=== PATIENT | female | born 1990 | race American Indian/Alaskan Native ===

== ENCOUNTER 2019-03-11 09:21 | Emergency (ER) | payer MEDICAID, OTHER ==
[2019-03-11 09:45] VITALS: BP 143/89
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
== END 2019-03-11 10:59 | disposition home or self-care (01) ==
LOC: ED 09:21
DX: S20.219A Contusion of unspecified front wall of thorax, initial encounter (principal); V49.49XA Driver injured in collision with other motor vehicles in traffic accident, initial encounter; Y93.89 Activity, other specified; Y92.89 Other specified places as the place of occurrence of the external cause; Y99.8 Other external cause status
CPT/HCPCS: 99281

== ENCOUNTER 2020-01-02 10:58 | Emergency (ER) | payer MEDICAID, OTHER ==
--- NOTE | 2020-01-02 12:52 | Event Note ---
ED Screening Note ED Screening Note: last menstrual cycle november 23 states she took a urine preg test and was positive states she began having vaginal bleeding yesterday lower abd cramping no PMHx no allergies to meds /P:4/A:1 This initial assessment/diagnostic orders/clinical plan/treatment(s) is/are subject to change based on patients health status, clinical progression and re- assessment by fellow clinical providers in the ED. Further treatment and workup at subsequent clinical providers discretion. Patient/guardian urged not to elope from the ED as their condition may be serious if not clinically assessed and managed. Initial orders include: labs, UA, US
[2020-01-02 12:56] VITALS: BP 123/70
[2020-01-02 13:22] LABS: Hematocrit 33.5 % (30.3-42.9); Hemoglobin 10.8 gm/dl (10.1-14.3); Mean Corpuscular HGB Conc 32 % (30-34); Platelet Count 247 K/mm3 (140-440); Red Blood Count 5.05 M/mm3 (3.65-5.03); Red Cell Distribution Width 16.7 % (13.2-15.2)
[2020-01-02 13:28] LABS: Mean Corpuscular Volume 66 fl (79-97)
[2020-01-02 13:44] LABS: Basophils # (Auto) 0.1 K/mm3 (0.0-0.1); Eosinophils # (Auto) 0.2 K/mm3 (0.0-0.4); Eosinophils % (Auto) 2.3 % (0.0-4.3); Monocytes # (Auto) 0.6 K/mm3 (0.0-0.8); Monocytes % (Auto) 6.7 % (0.0-7.3)
--- NOTE | 2020-01-02 14:22 | Ultrasound Report ---
Early obstetrical ultrasound INDICATION: , vaginal spotting TECHNIQUE: Transabdominal and endovaginal FINDINGS: Uterus measures 8.8 cm in length. Fundal gestational sac is seen with double wall sign note d. Yolk sac is seen. Sac size would correlate with a gestational age of 6 weeks 0 days. However, no f etal pole is visualized and no cardiac activity was noted. Flow is seen in both ovaries. Right ovary measures 2.8 cm in length and shows no abnormalities. Left ovary measures 3.1 cm in length and shows a 15 mm simple cyst. No free fluid is seen. IMPRESSION: Intrauterine is confirmed but I cannot confirm viability at this time. No pole is identified. Follow-up is needed. Signer Name: Matteo Lacey MD Signed: 01/02/2020 2:18 PM Workstation Name: [id number]
[2020-01-02 14:29] LABS: Bacteria,Urine 1+ /HPF (Negative); Bilirubin,Urine NEG (Negative); Blood,Urine LG (Negative); Color,Urine Yellow (Yellow); Mucus,Urine FEW /HPF; Protein,Urine <15 mg/dL mg/dL (Negative); Urobilinogen,Urine < 2.0 mg/dL (<2.0)
--- NOTE | 2020-01-02 14:40 | Emergency Department Report ---
ED HPI - General Chief complaint: Vaginal Bleeding Stated complaint: POSS MISCARRIAGE Time Seen by Provider: 01/02/20 12:51 Source: patient Mode of arrival: Ambulatory Limitations: No Limitations - History of Present Illness Initial comments: Patient is a 29-year-old F [place] female who states she is approximately 5 weeks who began having some vaginal bleeding last night. Patient states that initially she did see some clots however is slowed at this time. Patient also states there is mucus that appeared bloody when she wipes. Patient has some crampy lower abdominal pain suprapubic region. Patient does not note any tissue being passed from the vagina. She denies syncope shortness of breath nausea vomiting at this time. - Related Data Previous Rx's Medication Instructions Recorded Last Taken Type Cyclobenzaprine [Flexeril] 10 mg PO TID PRN #10 tablet 03/11/19 Unknown Rx predniSONE [Deltasone] 20 mg PO DAILY #5 tablet 03/11/19 Unknown Rx Allergies Allergy/AdvReac Type Severity Reaction Status Date / Time No Known Allergies Allergy Verified 03/11/19 09:25 ED Review of Systems ROS: Stated complaint: POSS MISCARRIAGE Other details as noted in HPI Comment: All other systems reviewed and negative ED Past Medical Hx - Past Medical History Previous Medical History?: No Hx Hypertension: No Hx Diabetes: No Hx Deep Vein Thrombosis: No Hx Renal Disease: No Hx Sickle Cell Disease: No Hx Seizures: No Hx Asthma: No Hx HIV: No - Surgical History Past Surgical History?: No - Social History Smoking Status: Never Smoker Substance Use Type: None - Medications Home Medications: Home Medications Medication Instructions Recorded Confirmed Last Taken Type Cyclobenzaprine [Flexeril] 10 mg PO TID PRN #10 tablet 03/11/19 Unknown Rx predniSONE [Deltasone] 20 mg PO DAILY #5 tablet 03/11/19 Unknown Rx ED Physical Exam - General Limitations: No Limitations General appearance: alert, in no apparent distress - Head Head exam: Present: atraumatic, normocephalic - Eye Eye exam: Present: normal appearance - ENT ENT exam: Present: normal orophraynx, mucous membranes moist - Neck Neck exam: Present: normal inspection - Respiratory Respiratory exam: Present: normal lung sounds bilaterally. Absent: respiratory distress, wheezes, rales, rhonchi - Cardiovascular Cardiovascular Exam: Present: regular rate, normal rhythm, normal heart sounds. Absent: systolic murmur, diastolic murmur, rubs, gallop - GI/Abdominal GI/Abdominal exam: Present: soft, tenderness (suprapubic), normal bowel sounds. Absent: distended, guarding, rebound - Extremities Exam Extremities exam: Present: normal inspection - Back Exam Back exam: Present: normal inspection - Neurological Exam Neurological exam: Present: alert, oriented X3 - Psychiatric Psychiatric exam: Present: normal affect, normal mood - Skin Skin exam: Present: warm, dry, intact, normal color. Absent: rash ED Course Vital Signs 01/02/20 01/02/20 12:54 13:18 Temperature 98.8 F Pulse Rate 96 H Respiratory 18 16 Rate Blood Pressure 123/70 O2 Sat by Pulse 100 Oximetry ED Medical Decision Making - Lab Data Result diagrams: 01/02/20 13:02 Lab Results 01/02/20 01/02/20 01/02/20 Range/Units 13:02 13:02 13:02 WBC 8.8 (4.5-11.0) K/mm3 RBC 5.05 H (3.65-5.03) M/mm3 Hgb 10.8 (10.1-14.3) gm/dl Hct 33.5 (30.3-42.9) % MCV 66 L (79-97) fl MCH 21 L (28-32) pg MCHC 32 (30-34) % RDW 16.7 H (13.2-15.2) % Plt Count 247 (140-440) K/mm3 Wright % (Auto) 6.7 (0.0-7.3) % Eos % (Auto) 2.3 (0.0-4.3) % Baso % (Auto) Sr. Logistics Analyst Wright # 0.6 (0.0-0.8) K/mm3 Eos # 0.2 (0.0-0.4) K/mm3 Baso # 0.1 (0.0-0.1) K/mm3 Seg Neutrophils % 61.8 (40.0-70.0) % Seg Neutrophils # 5.4 (1.8-7.7) K/mm3 HCG, Quant 9773 H (0-4) mIU/mL Urine Color (Yellow) Urine Turbidity (Clear) Urine pH (5.0-7.0) Ur Specific [place] (1.003-1.030) Urine Protein (Negative) mg/dL Urine Glucose (UA) (Negative) mg/dL Urine Ketones (Negative) mg/dL Urine Blood (Negative) Urine Nitrite (Negative) Urine Bilirubin (Negative) Urine Urobilinogen (<2.0) mg/dL Ur Leukocyte Esterase (Negative) Urine WBC (Auto) (0.0-6.0) /HPF Urine RBC (Auto) (0.0-6.0) /HPF U Epithel Cells (Auto) (0-13.0) /HPF Urine Bacteria (Auto) (Negative) /HPF Urine Mucus /HPF Blood Type A NEGATIVE Antibody Screen Negative 01/02/20 Range/Units 13:18 WBC (4.5-11.0) K/mm3 RBC (3.65-5.03) M/mm3 Hgb (10.1-14.3) gm/dl Hct (30.3-42.9) % MCV (79-97) fl MCH (28-32) pg MCHC (30-34) % RDW (13.2-15.2) % Plt Count (140-440) K/mm3 Wright % (Auto) (0.0-7.3) % Eos % (Auto) (0.0-4.3) % Baso % (Auto) Wright # (0.0-0.8) K/mm3 Eos # (0.0-0.4) K/mm3 Baso # (0.0-0.1) K/mm3 Seg Neutrophils % (40.0-70.0) % Seg Neutrophils # (1.8-7.7) K/mm3 HCG, Quant (0-4) mIU/mL Urine Color Yellow (Yellow) Urine Turbidity Clear (Clear) Urine pH 7.0 (5.0-7.0) Ur Specific [place] 1.017 (1.003-1.030) Urine Protein <15 mg/dl (Negative) mg/dL Urine Glucose (UA) Neg (Negative) mg/dL Urine Ketones Neg (Negative) mg/dL Urine Blood Lg (Negative) Urine Nitrite Neg (Negative) Urine Bilirubin Neg (Negative) Urine Urobilinogen < 2.0 (<2.0) mg/dL Ur Leukocyte Esterase Neg (Negative) Urine WBC (Auto) 3.0 (0.0-6.0) /HPF Urine RBC (Auto) 15.0 (0.0-6.0) /HPF U Epithel Cells (Auto) 8.0 (0-13.0) /HPF Urine Bacteria (Auto) 1+ (Negative) /HPF Urine Mucus Few /HPF Blood Type Antibody Screen RhNEGATIVE as reported to blood bank in the past - Radiology Data There is intrauterine confirmed but unfortunately we are unable to confirm viability at this time. There is a yolk sac present but no pole was identified. - Medical Decision Making Patient with with some vaginal bleeding starting last night. Patient will require additional follow-up to confirm viability of her . Patient diagnosed with a threatened miscarriage and be discharged home. Critical care attestation.: If time is entered above; I have spent that time in minutes in the direct care of this critically ill patient, excluding procedure time. ED Disposition Clinical Impression: Threatened miscarriage Disposition: DC-01 TO HOME OR SELFCARE Is pt being admited?: No Does the pt Need Aspirin: No Condition: Stable Instructions: Threatened Miscarriage (ED) Additional Instructions: Please follow-up in approximately 1 week for repeat ultrasound Referrals: JOSE HOPKINS MD [Staff Physician] - 3-5 Days Time of Disposition: 14:40
[2020-01-02 14:44] LABS: Basophils % (Manual) 0 % (0.0-1.8); Hypochromasia Few; Target Cells Few; Total Cells Counted 100
[2020-01-02 14:45] LABS: Large Platelets Few; Platelet Estimate Consistent w Auto
== END 2020-01-02 15:21 | disposition home or self-care (01) ==
LOC: ED 10:58
DX: O20.0 Threatened abortion (principal); Z3A.01 Less than 8 weeks gestation of pregnancy
CPT/HCPCS: 36415; 76801; 76817; 81001; 84702; 85007; 85025; 86850; 86900; 86901; 96372; 99284; J2790

== ENCOUNTER 2020-01-22 15:58 | Emergency (ER) | payer OTHER ==
[2020-01-22 17:04] LABS: Bilirubin,Urine NEG (Negative); Blood,Urine LG (Negative); Color,Urine Yellow (Yellow); Mucus,Urine FEW /HPF; Protein,Urine <15 mg/dL mg/dL (Negative)
--- NOTE | 2020-01-22 19:00 | Event Note ---
ED Screening Note ED Screening Note: 29 y/o female wasd8 weeks and dx with threaten miscarriage 3 weeks ago. c/o of continued bleeding with a new oder and discharge worried about a infection. Bleeding has improved but still continues. Has [employer] insurance but has not followed up with OB as she didnt have the time and needed to work. This initial assessment/diagnostic orders/clinical plan/treatment(s) is/are subject to change based on patients health status, clinical progression and re- assessment by fellow clinical providers in the ED. Further treatment and workup at subsequent clinical providers discretion. Patient/guardian urged not to elope from the ED as their condition may be serious if not clinically assessed and managed. Initial orders include:
[2020-01-22 19:24] LABS: Basophils # (Auto) 0.1 K/mm3 (0.0-0.1); Basophils % (Auto) 0.6 % (0.0-1.8); Eosinophils # (Auto) 0.3 K/mm3 (0.0-0.4); Eosinophils % (Auto) 2.7 % (0.0-4.3); Hematocrit 31.6 % (30.3-42.9); Hemoglobin 9.9 gm/dl (10.1-14.3); Lymphocytes # (Auto) 2.9 K/mm3 (1.2-5.4); Lymphocytes % (Auto) 27.6 % (13.4-35.0); Mean Corpuscular HGB Conc 31 % (30-34); Monocytes # (Auto) 0.7 K/mm3 (0.0-0.8); Monocytes % (Auto) 6.3 % (0.0-7.3); Platelet Count 275 K/mm3 (140-440); Red Blood Count 4.85 M/mm3 (3.65-5.03); Red Cell Distribution Width 16.5 % (13.2-15.2)
[2020-01-22 19:25] LABS: Mean Corpuscular Volume 65 fl (79-97)
--- NOTE | 2020-01-22 21:20 | Ultrasound Report ---
Obstetrical ultrasound. HISTORY: Vaginal bleeding. FINDINGS: Imaging was performed transabdominally. An early viable intrauterine is dated 6 w eeks 2 days. The gestational sac contains a yolk sac only. No pole is identified. Right ovary measures 2 x 1 point 2 x 2 CM. The left ovary is not seen. IMPRESSION: 1. Early gestational sac containing a yolk sac. 2. Left ovary not seen. Signer Name: Saúl Rae MD Signed: 01/22/2020 9:15 PM Workstation Name: [id number]
--- NOTE | 2020-01-22 23:24 | Emergency Department Report ---
ED Female HPI - General Chief complaint: Vaginal Bleeding Stated complaint: 8 WKS PREG AND BLEEDING Source: patient Mode of arrival: Ambulatory Limitations: No Limitations - History of Present Illness Initial comments: Patient is a A1 29-year-old -Kittitian female who is approximately 9 weeks gestation and who presents to the ED with complaint of acute onset persis tent heavy vaginal bleeding and pelvic pain for the last 3 weeks. Patient states that she was initially evaluated in this ED about 3 weeks ago and had transvaginal ultrasound performed which showed that she was 6 weeks gestation. Patient states that her symptoms continued and that in the last 3 days the vaginal bleeding has worsened with blood clots and malodorous smell in her vagina. Patient also complains of diffuse low back pain and generalized weakness. Patient denies fever, chills, dysuria, urinary frequency and urgency, dizziness, syncope, chest pain or shortness of breath, diarrhea, dysuria, urinary frequency and urgency, sore throat or headache. MD Complaint: vaginal bleeding, pelvic pain -: Sudden, week(s) (3) Location: suprapubic, other (Vaginal) Severity: severe Severity scale (0 -10): 7 Quality: cramping, sharp Consistency: constant Improves with: none Worsens with: none Are you Now?: Yes Associated Symptoms: denies other symptoms, vaginal bleeding, abdominal pain (Suprapubic), loss of appetite. denies: vaginal discharge, nausea/vomiting, fever/chills, dysuria, hematuria, rash, shortness of breath, syncope - Related Data Sexually active: Yes : 6 Para: 4 A: 1 Previous Rx's Medication Instructions Recorded Last Taken Type Cyclobenzaprine [Flexeril] 10 mg PO TID PRN #10 tablet 03/11/19 Unknown Rx predniSONE [Deltasone] 20 mg PO DAILY #5 tablet 03/11/19 Unknown Rx Allergies Allergy/AdvReac Type Severity Reaction Status Date / Time No Known Allergies Allergy Verified 03/11/19 09:25 ED Review of Systems ROS: Stated complaint: 8 WKS PREG AND BLEEDING Other details as noted in HPI Constitutional: denies: chills, fever Eyes: denies: eye pain, eye discharge, vision change ENT: denies: ear pain, throat pain Respiratory: denies: cough, shortness of breath, wheezing Cardiovascular: denies: chest pain, palpitations Endocrine: no symptoms reported Gastrointestinal: abdominal pain (Suprapubic pain). denies: nausea, diarrhea Genitourinary: hematuria, abnormal menses (Heavy vaginal bleeding). denies: urgency, dysuria, discharge Musculoskeletal: denies: back pain, joint swelling, arthralgia Skin: denies: rash, lesions Neurological: denies: headache, weakness, paresthesias Psychiatric: denies: anxiety, depression Hematological/Lymphatic: denies: easy bleeding, easy bruising ED Past Medical Hx - Past Medical History Hx Hypertension: No Hx Diabetes: No Hx Deep Vein Thrombosis: No Hx Renal Disease: No Hx Sickle Cell Disease: No Hx Seizures: No Hx Asthma: No Hx HIV: No - Surgical History Past Surgical History?: No - Social History Smoking Status: Never Smoker Substance Use Type: None - Medications Home Medications: Home Medications Medication Instructions Recorded Confirmed Last Taken Type Cyclobenzaprine [Flexeril] 10 mg PO TID PRN #10 tablet 03/11/19 Unknown Rx predniSONE [Deltasone] 20 mg PO DAILY #5 tablet 03/11/19 Unknown Rx ED Physical Exam - General Limitations: No Limitations General appearance: alert, in no apparent distress, appears intoxicated, obtunded, postictal - Head Head exam: Present: atraumatic, normal inspection - Eye Eye exam: Present: normal appearance, PERRL, EOMI - ENT ENT exam: Present: normal exam, normal orophraynx, mucous membranes dry, TM's normal bilaterally, normal external ear exam - Neck Neck exam: Present: normal inspection, full ROM - Respiratory Respiratory exam: Present: normal lung sounds bilaterally, respiratory distress, wheezes. Absent: rales, rhonchi, chest wall tenderness, accessory muscle use, prolonged expiratory - Cardiovascular Cardiovascular Exam: Present: regular rate, tachycardia, normal heart sounds - GI/Abdominal GI/Abdominal exam: Present: soft, tenderness (Palpable mild suprapubic tenderness). 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 Absent: tenderness, muscle spasm, paraspinal tenderness - Neurological Exam Neurological exam: Present: alert, oriented X3, CN II-XII intact, normal gait, reflexes normal - Psychiatric Psychiatric exam: Present: normal affect, normal mood - Skin Skin exam: Present: warm, dry, intact, normal color. Absent: rash ED Course Vital Signs 01/22/20 01/22/20 16:21 23:00 Temperature 99.0 F 98.8 F Pulse Rate 102 H 100 H Respiratory 19 16 Rate Blood Pressure 116/68 Blood Pressure 113/62 [Left] O2 Sat by Pulse 99 99 Oximetry ED Medical Decision Making - Lab Data Result diagrams: 01/22/20 19:09 - Radiology Data Radiology results: report reviewed, image reviewed Findings [facility] [address] [place] [address] Ultrasound Report Signed Patient: ISIDRO SANCHEZ MR#: [id number] : 1990 Acct:[id number] Age/Sex: 29 / F ADM Date: 01/22/20 Loc: ED Attending Dr: Ordering Physician: JOCELYNN RICHARD Date of Service: 01/22/20 Procedure(s): US OB <= 14 weeks fetus Accession Number(s): [id number] cc: JOCELYNN RICHARD Obstetrical ultrasound. HISTORY: Vaginal bleeding. FINDINGS: Imaging was performed transabdominally. An early viable intrauterine is dated 6 weeks 2 days. The gestational sac contains a yolk sac only. No pole is identified. Right ovary measures 2 x 1 point 2 x 2 CM. The left ovary is not seen. IMPRESSION: 1. Early gestational sac containing a yolk sac. 2. Left ovary not seen. Signer Name: Saúl Rae MD Signed: 01/22/2020 9:15 PM Workstation Name: [id number] Transcribed By: ES Dictated By: Saúl Rae MD Electronically Authenticated By: Saúl Rae MD Signed Date/Time: 01/22/202114 DD/ 13 TD/TT: - Medical Decision Making This is a A1 29-year-old -Kittitian female who is approximately 9 weeks gestation and who presented to the ED with complaint of acute onset persistent severe pelvic pain with heavy vaginal bleeding for 3 weeks worse in the last 2 days. In the ED, patient is alert and oriented x3 and is not in distress but appears to be in pain and uncomfortable. Pelvic exam reveals significant bleeding in the vaginal vault with clots. Lab test results [place] [address] and large blood in the urine. The rest of the lab test results are unremarkable. Transvaginal ultrasound showed an e vinayak viable intrauterine is dated 6 weeks 2 days. The gestational sac contains a yolk sac only. No pole is identified. The hCG quant during the previous visit 3 weeks ago was 9700 and even then the transvaginal ultrasound showed gestational sac that contained a yolk sac only with no pole and was approximately 6 weeks 0 days gestation. When correlated with a hCG quant, there appears to be a significant increase in hCG quant in the last 3 weeks but based on transvaginal ultrasound report, there does not appear to be any significant development of the intrauterine as the pole of the IUP has not been identified even 3 weeks ago during her initial visit to the ED. This is of concern as there appears to be no intrauterine growth. I explained to the patient the possible outcomes of this including complete miscarriage or the fact that it may be too early to characterize with ultrasound. Patient was disappointed that 3 weeks later the transvaginal ultrasound almost reads the same as the original reading 3 days ago and wanted be terminated in the ED but the patient was advised that she has to follow-up with the [facility] physician whom she does not have at the moment for follow-up. Patient was therefore discharged home and advised to maintain a complete pelvic rest, and to take Tylenol as needed for pain and follow-up with the [facility] physician coconut candy maker Dr. Shanon Montague for further evaluation. Patient was advised to contact Dr. Montague office first thing in the morning on January 24, 2020 to schedule a follow-up appointment for further evaluation. Patient was however advised to return to the ED immediately if symptoms get worse. - Differential Diagnosis Threatened miscarriage; Dermoid ; Subchorionic bleed; UTI; ovarian Critical care attestation.: If time is entered above; I have spent that time in minutes in the direct care of this critically ill patient, excluding procedure time. ED Disposition Clinical Impression: Threatened miscarriage Abdominal pain in Qualifiers: Trimester: first trimester Qualified Code(s): O26.891 - Other specified related conditions, first trimester Disposition: DC-01 TO HOME OR SELFCARE Is pt being admited?: No Does the pt Need Aspirin: No Condition: Stable Instructions: Threatened Miscarriage (ED), Abdominal Pain in (ED) Additional Instructions: Maintain a complete pelvic rest, take Tylenol as needed for pain, and follow-up with your [facility] physician in 3 to 5 days for reevaluation. Return to the ED immediately if symptoms get worse. Referrals: SHANON MONTAGUE MD [Staff Physician] - 3-5 Days Time of Disposition: 23:28 Print Language: KISWAHILI
[2020-01-22 23:58] VITALS: BP 113/62
== END 2020-01-23 00:03 | disposition home or self-care (01) ==
LOC: ED 15:58
DX: O20.0 Threatened abortion (principal); O26.891 Other specified pregnancy related conditions, first trimester; R10.9 Unspecified abdominal pain; Z3A.01 Less than 8 weeks gestation of pregnancy; Z79.899 Other long term (current) drug therapy
CPT/HCPCS: 36415; 76801; 81001; 84702; 85025; 86900; 86901

== ENCOUNTER 2020-07-12 22:33 | Emergency (ER) | payer OTHER ==
[2020-07-12 23:32] VITALS: BP 115/68
[2020-07-13] MEDS ORDERED: IBUPROFEN 600 MG TAB PO ONE (00:57)
[2020-07-13] MEDS ORDERED: ACETAMINOPHEN 500 MG TAB PO ONE (00:57)
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
== END 2020-07-13 03:30 | disposition home or self-care (01) ==
LOC: ED 22:33
DX: R51 Headache (principal); Z53.21 Procedure and treatment not carried out due to patient leaving prior to being seen by health care provider
CPT/HCPCS: 70450; 72125; 72128